=== PATIENT | female | born 1970 | race Caucasian/White ===

== ENCOUNTER 2017-06-16 10:21 | Emergency (ER) | payer SELFPAY ==
[~2017-06-16] VITALS: Wt 85.0 kg
[2017-06-16] MEDS ORDERED: KETOROLAC 30 MG INJ IM STA (11:15)
[2017-06-16] MEDS ORDERED: MECLIZINE 12.5 MG TAB PO ONE (11:30)
--- NOTE | 2017-06-16 11:52 | RADRPT ---
PROCEDURE: US orbits. CLINICAL INDICATION: Bilateral visual disturbance. TECHNIQUE: High-resolution sonography of the orbits was performed in the axial and sagittal planes . COMPARISON: None. FINDINGS: On the right side, there is abnormal irregular echogenicity within the vitreous consistent with vitr eous hemorrhage. There is also a linear region of increased echogenicity posteriorly which may indic ate retinal detachment. On the left side, there is subtle abnormal increased echogenicity posteriorly consistent with vitreo us hemorrhage. There is no evidence of retinal detachment. IMPRESSION: 1. On the right, vitreous hemorrhage with possible retinal detachment. 2. On the left, vitreous hemorrhage with no retinal detachment. RPTAT: QQ .Ar Michael MD, MD Date Time Electronically viewed and signed by .Ar Michael MD, MD on 06/16/2017 11:52 .R/
[2017-06-16] MEDS ORDERED: LEVO75TA5 PO (12:12)
[2017-06-16] MEDS ORDERED: CEPH500C PO (12:13)
[2017-06-16] MEDS ORDERED: FERR256T PO (12:13)
--- NOTE | 2017-06-16 13:58 | ERD ---
ER Documentation Chief Complaint Chief Complaint DIZZINES AND BLACK SPOTS FOR THE PAST 2-3 DAYS. NO TRAUMA. HPI Patient is a 47-year-old female with thyroid disease, anemia, and kidney issues who presents with dizziness. The patient was brought in by ambulance. She said that she had dizziness all day. She felt black spots and floaters in her eyes bilaterally. She had headache as well. She denies trauma. She also complains of left arm tingling for the past 3 days. She was sent to the ER by her clinic to rule out retinal detachment. ROS All systems reviewed and are negative except as per history of present illness. Medications Home Meds Reported Medications Cephalexin* (Cephalexin*) 500 Mg Capsule, 500 MG PO Q8, #21 CAP 06/16/17 Ferrous Gluconate (Iron) 256 Mg Tablet, 256 MG PO DAILY, TAB 06/16/17 Levothyroxine Sodium* (Levothyroxine Sodium*) 75 Mcg Tablet, 75 MCG PO BEFORE BREAKFAST, #30 TAB 06/16/17 Allergies Allergies: Coded Allergies: No Known Allergy (Unverified , 06/16/17) PMhx/Soc Medical and Surgical Hx: pt denies Surgical Hx Hx Miscellaneous Medical Probl: Yes (THYROID, PRE-DIABETES) Hx Alcohol Use: No Hx Substance Use: No Hx Tobacco Use: No Smoking Status: Never smoker FmHx Family History: diabetes Physical Exam Vitals Vital Signs Date Time Temp Pulse Resp B/P Pulse Ox O2 Delivery O2 Flow Rate FiO2 06/16/17 10:47 98.5 75 21 145/75 98 Physical Exam Const: No acute distress Head: Atraumatic Eyes: Normal Conjunctiva ENT: Normal External Ears, Nose and Mouth. Neck: Full range of motion..~ No meningismus. Resp: Clear to auscultation bilaterally Cardio: Regular rate and rhythm, no murmurs Abd: Soft, non tender, non distended. Normal bowel sounds Skin: No petechiae or rashes Back: No midline or flank tenderness Ext: No cyanosis, or edema Neur: Awake and alert, cranial nerves II through XII are intact, strength is 5 out of 5 in all 4 extremities Psych: Normal Mood and Affect Results 24 hrs Laboratory Tests Test 06/16/17 10:57 Bedside Glucose 94mg/dL Current Medications Medications (Trade) Dose Ordered Sig/Costa Route PRN Reason Start Time Stop Time Status Last Admin Dose Admin Ketorolac Tromethamine (Toradol) 30 mg ONCE STAT IM 06/16/17 11:15 06/16/17 11:16 DC 06/16/17 11:30 Meclizine HCl (Antivert) 25 mg ONCE ONCE PO 06/16/17 11:30 06/16/17 11:31 DC 06/16/17 11:30 Procedures/MDM Visual acuity is 20/50 in the right eye, 20/50 in the left eye, and 20/40 bilaterally Ultrasound of the eyes bilaterally shows a right-sided vitreous hemorrhage with possible retinal detachment and on the left vitreous hemorrhage with no retinal detachment. EKG read by me: Rate/Rhythm: Regular rate and rhythm at a rate of 70 Intervals: Normal Impression: No evidence of ischemia or arrhythmia test is negative. Accu-Chek is normal. Patient is a 47-year-old female who presents with bilateral vitreous hemorrhage and right-sided retinal detachment. The patient will need transfer for higher level of care. We have called the [facility] system and are awaiting a callback at this time. The patient will require higher level of care transport for ophthalmology as we do not have ophthalmology watch repair person here at the hospital. Departure Diagnosis: Primary Impression: Dizziness Additional Impressions: Vitreous hemorrhage Laterality: bilateral Qualified Code: H43.13 - Vitreous hemorrhage of both eyes Retinal detachment Laterality: right Qualified Code: H33.21 - Right retinal detachment Condition: Serious HARJINDER FORD MD Jun 16, 2017 13:58
[2017-06-16 23:27] VITALS: BP 127/71; PULSE 94; RESP 18; TEMP 98
== END 2017-06-16 23:27 | disposition left against medical advice (07) ==
LOC: E/R 10:21
DX: H43.13 Vitreous hemorrhage, bilateral (principal); R40.2252 Coma scale, best verbal response, oriented, at arrival to emergency department; H33.21 Serous retinal detachment, right eye; R40.2142 Coma scale, eyes open, spontaneous, at arrival to emergency department; R40.2362 Coma scale, best motor response, obeys commands, at arrival to emergency department
CPT/HCPCS: 76536; 82962; 96372; 99285; J1885